=== PATIENT | male | born 1960 | race Caucasian/White ===

== ENCOUNTER 2024-06-01 06:55 | Emergency (ER) | payer MEDICARE, SELFPAY ==
[2024-06-01 06:58] VITALS: BP 138/79
--- NOTE | 2024-06-01 07:46 | ED.MUSCINJ ---
HPI-Injury
General
Chief Complaint: Musculo-Skeletal Complaint
Source: patient
Time Seen by Provider: 06/01/24 07:29
History of Present Illness-Injury
Initial Injury comments:
64yoM with a history of hypertension, hyperlipidemia, and TIA presenting for evaluation of right knee pain. Patient has been having ongoing right knee pain for the past month or so. He was seen by orthopedics 5 days ago and received a Kenalog
injection. He was also given a prescription for an MRI but he has not scheduled this yet. His pain resolved for several days after receiving this. Yesterday afternoon, he was getting into his truck and had all of his weight on his right knee. He
heard a large crack and felt his right knee give out. He has been having increasing pain and difficulty with weight bearing since that time. No paresthesias.
Past History
Past History
ED Past Medical History: Other (Hypertension, hyperlipidemia, previous inguinal hernia repair)
Social History
Tobacco: Non-smoker
Alcohol: Occasional
Family History
Family History: Negative Diabetes, Hypertension or CAD
Phy Exam
General Physical Exam
General Presentation: well appearing and no apparent distress
General age: appears stated age
General Skin: warm and dry
General Habitus: normal
General Mental: alert
ENT Exam
ENT Exam: normocephalic
Pulmonary Exam
Pulmonary Exam: no respiratory distress
Za[place] Coma Scale
Eye Opening: Spontaneous
Verbal Response: Oriented
Motor Response: Obeys Commands
GCS Total Score: 15
Musculoskeletal Exam
Musculoskeletal Exam: other (R knee: No effusion or erythema noted. No deformity. +Lateral joint line tenderness. ROM is decreased 2/2 pain but patient able to flex to 90 degrees. 2+ PT pulse and sensation intact. )
Skin Exam
Skin Exam: normal color and warm/dry
Psychiatric Exam
Psychiatric Exam: normal mood/affect
Injury Course
Orders/Labs/Results
Orders:
Orders
06/01/24 07:05
Knee, Right 4 or More Views [CR Knee- Right 4 Or More View*] Urgent
Comment:
Reason For Exam: pain
06/01/24 07:44
Crutches-Treatment ONCE
Knee Immobilizer Right-Treatme ONCE
MDM/Problems Addressed
Differential Diagnosis Includes:
64yoM here with R knee pain. Received a steroid injection in the knee 5 days ago. Guion a pop while standing on the leg yesterday and now having worsening pain. VSS. No effusion or erythema on exam. RLE is neurovascularly intact. Differential
diagnosis includes but is not limited to: fracture, ligamentous injury, meniscal injury, no signs of septic arthritis
X-rays obtained which are negative for fractures. He was placed in a knee immobilizer and given crutches. He has a script for an outpatient MRI of his knee that he will schedule tomorrow. Advised f/u with orthopedics. He was discharged in stable
condition.
*Critical Care Note
Total Time (30-74mins, 75-104mins- exclusive of procedures): Not Applicable
ED Attending Note
-
Portions of this chart may have been created with voice recognition software.� Occasional wrong word or��sound alike� substitutions may have occurred due to the inherent limitations of voice recognition software.
Discharge Plan
Departure
Patient Disposition: Home (Routine Discharge)
Date of Disposition: 06/01/24
Time of Disposition: 07:45
Patient with high blood pressure during this ER visit?: No
Discharge Problem:
Injury of right knee
Instructions: Knee Pain ED
Prescriptions:
No Action
lisinopril 20 MG tablet
20 mg PO DAILY
multivitamin [One Daily] 1 EACH tablet
1 ea PO DAILY
ascorbic acid (vitamin C) [Vitamin C] 1,000 MG tablet
1,000 mg PO DAILY
rosuvastatin 20 MG tablet
20 mg PO QPM
amlodipine 10 MG tablet
10 mg PO DAILY
aspirin 81 MG tablet,chewable
81 mg PO DAILY
zolpidem 5 MG tablet
5 mg PO QPM
escitalopram oxalate 10 MG tablet
10 mg PO QPM
Loratadine [Claritin] 10 MG Tablet
10 mg PO DAILY
Referrals:
Cheryl Bourgeois DO [Family Provider] -
Activity Restrictions/Additional Instructions:
Wear knee immobilizer for support. Rest, ice, and elevate your leg. Take Tylenol 650mg every 6 hours as needed for pain.
Please call tomorrow to schedule your MRI and follow-up with orthopedics.
Interventions
Interventions:
*Risk Screen - Suicide Last Done: 06/01/24 07:20
*General Assessment Last Done: 06/01/24 07:20
*Neglect/Abuse Screening Last Done: 06/01/24 07:20
*ED COVID-19 Vaccine History Last Done: 06/01/24 07:20
*Nursing Disposition Last Done: 06/01/24 08:30
ED-Musculoskeletal Assessment Last Done: 06/01/24 07:19
Discharge Date and Time
Discharge Date/Time: 06/01/24 08:59
Print Language: CHADIAN
== END 2024-06-01 08:59 | disposition home or self-care (01) ==
LOC: EMR 06:55
PROVIDERS: EMERGENCY PHYSICIAN Emergency Medicine; FAMILY PHYSICIAN Family Medicine
DX: S89.91XA Unspecified injury of right lower leg, initial encounter (principal); M25.561 Pain in right knee; X58.XXXA Exposure to other specified factors, initial encounter; I10 Essential (primary) hypertension; E78.5 Hyperlipidemia, unspecified; Z86.73 Personal history of transient ischemic attack (TIA), and cerebral infarction without residual deficits; Z79.82 Long term (current) use of aspirin; Z88.0 Allergy status to penicillin; Z88.8 Allergy status to other drugs, medicaments and biological substances; Z91.048 Other nonmedicinal substance allergy status
CPT/HCPCS: 99283; 29505; 73564

== ENCOUNTER → 2024-06-04 19:19 | Outpatient (REF) | payer MEDICARE, SELFPAY | LOC: PAVMRI 19:19 | PROVIDERS: ATTENDING PHYSICIAN Physician Assistant Surgical; FAMILY PHYSICIAN Family Medicine | DX: M25.561 Pain in right knee (principal) | CPT/HCPCS: 73721 ==

== ENCOUNTER → 2024-08-15 14:54 | Outpatient (REF) | payer MEDICARE, SELFPAY | LOC: HWRCS 14:54 | PROVIDERS: ATTENDING PHYSICIAN Nurse Practitioner; FAMILY PHYSICIAN Family Medicine | DX: I77.89 Other specified disorders of arteries and arterioles (principal); I10 Essential (primary) hypertension; I63.9 Cerebral infarction, unspecified | CPT/HCPCS: 93306 ==

== ENCOUNTER → 2024-09-02 07:42 | Outpatient (REF) | payer MEDICARE, SELFPAY | LOC: RAD 07:42 | PROVIDERS: ATTENDING PHYSICIAN Nurse Practitioner; FAMILY PHYSICIAN Family Medicine | DX: I77.89 Other specified disorders of arteries and arterioles (principal); I10 Essential (primary) hypertension; I63.9 Cerebral infarction, unspecified; I99.8 Other disorder of circulatory system | CPT/HCPCS: 93922; 93925 ==

== ENCOUNTER → 2025-05-15 11:07 | Outpatient (REF) | payer MEDICARE, SELFPAY | LOC: HWRAD 11:07 | PROVIDERS: ATTENDING PHYSICIAN Family Medicine | DX: E04.1 Nontoxic single thyroid nodule (principal) | CPT/HCPCS: 76536 ==

== ENCOUNTER → 2025-07-08 12:30 | Outpatient (REF) | payer MEDICARE, SELFPAY ==
[2025-07-08 12:45] VITALS: BP 154/85; BP_SYST 63
== END ==
LOC: RADI 12:30
PROVIDERS: ATTENDING PHYSICIAN Otolaryngology Facial Plastic Surgery; FAMILY PHYSICIAN Family Medicine
DX: E04.1 Nontoxic single thyroid nodule (principal)
CPT/HCPCS: 10005; 88173